=== PATIENT | female | born 1960 | race Caucasian/White ===

== ENCOUNTER 2017-07-13 10:53 | Emergency (ER) | payer OTHER ==
[2017-07-13] MEDS ORDERED: Sodium Chloride 0.9% 10 ML Syringe FLUSH PRN (11:07)
[2017-07-13] MEDS ORDERED: Ondansetron 4 MG/2 ML SDV IVPUSH ONE (11:09)
[2017-07-13] MEDS ORDERED: Ketorolac 30 MG/ML SDV IVPUSH ONE (11:09)
[2017-07-13] MEDS ORDERED: Lactated Ringers 1,000 ML IV SCH (11:15)
[2017-07-13 11:46] LABS: CHLORIDE,CL 105 mmol/L (98-107); SODIUM,NA 143 mmol/L (136-145)
[2017-07-13] MEDS ORDERED: Take Home: Nitrofurantoin Monohydrate/Macrocrystalline 100 MG, 2 Cap Pack PO ONE (13:40)
--- NOTE | 2017-07-13 13:59 | EDM.PDOC ---
ED HPI GENERAL MEDICAL PROBLEM - General Chief Complaint: Genitourinary Problem Stated Complaint: POSSIBLE UTI OR KIDNEY STONE Time Seen by Provider: 07/13/17 11:04 Source of Information: Reports: Patient History Limitations: Reports: No Limitations - History of Present Illness INITIAL COMMENTS - FREE TEXT/NARRATIVE: Pt. presents to ER with complaints of L sided flank pain and lower abdominal cramping. Pt. states that the symptoms started at approx. 0800 this AM. She states that the discomfort was very rapid in onset, and states that it resolved prior to arrival to the ER. She denies any fever or chills. No gross hematuria. She denies any weakness or sweats. No nausea, vomiting or diarrhea. Pt. states that the symptoms are similar to what she experienced when she has previously had kidney stones, with her last episode being approx. 4.5 years ago. She states that she has seen a urologist in the past and has required lithotripsy and ureteral stenting to facilitate passage of stones. She states that she has had approx. 6 previous episodes of renal colic. She states that the last time she had imaging of her kidneys (either KUB or CT scan, she can't recall) she had a large stone in the L kidney. She states that the stone composition has always been calcium oxylate. Pt. states that she has also been experiencing urinary frequency and dysuria for the past 1-2 days as well. Onset: Today Onset Date: 07/13/17 Onset Time: 08:00 Duration: Improving Location: Reports: Abdomen, Pelvis Quality: Reports: Ache, Sharp, Stabbing Severity: Severe Improves with: Reports: Other (spontaneously) Associated Symptoms: Reports: Nausea/Vomiting (nausea). Denies: Fever/Chills Left Flank Pain Score (Numeric/FACES): 4 - Related Data Allergies Allergy/AdvReac Type Severity Reaction Status Date / Time ciprofloxacin [From Cipro] Allergy Rash Verified 07/13/17 11:07 ibuprofen Allergy Hives Verified 07/13/17 11:07 Penicillins Allergy Hives Verified 07/13/17 11:07 Sulfa (Sulfonamide Allergy Vomiting Verified 07/13/17 11:07 Antibiotics) Home Meds: Home Meds Hydrochlorothiazide 25 mg PO DAILY 07/13/17 [History] Levothyroxine 137 mcg PO ACBREAKFAST 07/13/17 [History] Potassium Citrate 10 meq PO BID 07/13/17 [History] Venlafaxine [Effexor XR] 75 mg PO DAILY 07/13/17 [History] buPROPion [Wellbutrin] 75 mg PO BID 07/13/17 [History] Past Medical History Genitourinary History: Reports: Renal Calculus - Past Surgical History Female Surgical History: Reports: Lithotripsy/ESWL, Ureteral Stent Social & Family History - Tobacco Use Smoking Status *Q: Current Every Day Smoker Years of Tobacco use: 30 Packs/Tins Daily: 0.2 ED ROS GENERAL - Review of Systems Review Of Systems: See Below Constitutional: Reports: No Symptoms HEENT: Reports: No Symptoms Respiratory: Reports: No Symptoms Cardiovascular: Reports: No Symptoms Endocrine: Reports: No Symptoms GI/Abdominal: Reports: Abdominal Pain, Constipation. Denies: Diarrhea, Distension : Reports: Dysuria, Flank Pain, Frequency. Denies: Hematuria Musculoskeletal: Reports: No Symptoms Skin: Reports: No Symptoms Neurological: Reports: No Symptoms Psychiatric: Reports: No Symptoms Hematologic/Lymphatic: Reports: No Symptoms Immunologic: Reports: No Symptoms ED EXAM, GENERAL - Physical Exam Exam: See Below Exam Limited By: No Limitations General Appearance: Alert, WD/WN, No Apparent Distress Nose: Normal Inspection, Normal Mucosa, No Blood Throat/Mouth: Normal Inspection, Normal Lips, Normal Teeth, Normal Gums, Normal Oropharynx, Normal Voice, No Airway Compromise Head: Atraumatic, Normocephalic Neck: Normal Inspection, Supple, Non-Tender, Full Range of Motion Respiratory/Chest: No Respiratory Distress, Lungs Clear, Normal Breath Sounds, No Accessory Muscle Use, Chest Non-Tender Cardiovascular: Normal Peripheral Pulses, Regular Rate, Rhythm, No Edema, No Gallop, No JVD, No Murmur, No Rub Peripheral Pulses: 3+: Radial (L), Radial (R) GI/Abdominal: Normal Bowel Sounds, Soft, No Organomegaly, No Distention, No Mass , Pelvis Stable, Tender (No increased tenderness to palpation.). No: Distended , Mass, Hepatomegaly, Splenomegaly (Female) Exam: Deferred Rectal (Female) Exam: Deferred Back Exam: Normal Inspection, Full Range of Motion. No: CVA Tenderness (L), CVA Tenderness (R), Decreased Range of Motion Extremities: Normal Inspection, Normal Range of Motion, Non-Tender, Normal Capillary Refill, No Pedal Edema Neurological: Alert, Oriented, CN II-XII Intact, Normal Cognition, Normal Gait, Normal Reflexes, No Motor/Sensory Deficits Psychiatric: Normal Affect, Normal Mood Skin Exam: Warm, Dry, Intact, Normal Color, No Rash Lymphatic: No Adenopathy Course - Vital Signs Last Recorded V/S: Last Vital Signs Temp 36.3 C 07/13/17 11:00 Pulse 79 07/13/17 11:00 Resp 16 07/13/17 11:00 BP 108/66 07/13/17 11:00 Pulse Ox 96 07/13/17 11:00 - Orders/Labs/Meds Orders: Active Orders 24 hr Category Date Time Status Abdomen Pelvis wo Cont [CT] Stat Exams 07/13/17 12:11 Taken UA W/MICROSCOPIC [URIN] Stat Lab 07/13/17 11:15 Ordered Lactated Ringers [Ringers, Lactated] 1,000 ml Med 07/13/17 11:15 Active IV ASDIRECTED Sodium Chloride 0.9% [Saline Flush] Med 07/13/17 11:07 Active 10 ml FLUSH ASDIRECTED PRN Peripheral IV Insertion Adult [OM.PC] Routine Oth 07/13/17 11:08 Ordered Medication Orders Lactated Ringer's (Ringers, Lactated) 1,000 mls @ 500 mls/hr IV ASDIRECTED NILS Last Admin: 07/13/17 11:21 Dose: 500 mls/hr Sodium Chloride (Saline Flush) 10 ml FLUSH ASDIRECTED PRN PRN Reason: Keep Vein Open Last Admin: 07/13/17 11:20 Dose: 10 ml Labs: Laboratory Tests 07/13/17 07/13/17 07/13/17 Range/Units 11:15 11:19 11:19 WBC 6.3 (4.0-10.0) x10^3/uL RBC 4.60 (4.00-5.50) x10^6/uL Hgb 14.9 (12.0-16.0) g/dL Hct 44.4 (33.0-47.0) % MCV 96.5 H (78.0-93.0) fL MCH 32.4 H (26.0-32.0) pg MCHC 33.6 (32.0-36.0) g/dL RDW Coeff of June 13.7 (10.0-15.0) % Plt Count 195 (130-400) x10^3/uL Neut % (Auto) 50.4 (50.0-80.0) % Lymph % (Auto) 38.4 (25.0-50.0) % [place] % (Auto) 8.3 (2.0-11.0) % Eos % (Auto) 2.4 (0.0-4.0) % Baso % (Auto) 0.5 (0.2-1.2) % Sodium 143 (136-145) mmol/L Potassium 3.9 (3.5-5.1) mmol/L Chloride 105 (98-107) mmol/L Carbon Dioxide 27 (21-32) mmol/L BUN 19 H (7-18) mg/dL Creatinine 1.0 (0.55-1.02) mg/dL Est Cr Clr Drug Dosing TNP Estimated GFR (MDRD) 57 Glucose 92 (74-106) mg/dL Calcium 8.9 (8.5-10.1) mg/dL Corrected Calcium 9.14 (8.5-10.1) mg/dL Total Bilirubin 0.4 (0.2-1.0) mg/dL AST 25 (15-37) U/L ALT 40 (14-59) U/L Alkaline Phosphatase 107 (46-116) U/L Total Protein 8.1 (6.4-8.2) g/dL Albumin 3.7 (3.4-5.0) g/dL Globulin 4.4 Albumin/Globulin Ratio 0.84 Urine Color Yellow (YELLOW) Urine Appearance Slightly cloudy H (CLEAR) Urine pH 6.0 (5.0-8.0) Ur Specific [place] 1.020 Urine Protein Negative (NEGATIVE) mg/dL Urine Glucose (UA) Negative (NEGATIVE) mg/dL Urine Ketones Negative (NEGATIVE) mg/dL Urine Occult Blood Moderate H (NEGATIVE) Urine Nitrite Positive H (NEGATIVE) Urine Bilirubin Negative (NEGATIVE) Urine Urobilinogen 0.2 (0.2) EU/dL Ur Leukocyte Esterase Trace H (NEGATIVE) Urine RBC 10-20 H (NOT SEEN) /HPF Urine WBC 10-20 H (NOT SEEN) /HPF Ur Squamous Epith Cells Moderate H (NEGATIVE) /HPF Urine Bacteria Many H (NEGATIVE) /HPF Urine Mucus Not seen (NEGATIVE) /LPF Meds: Medications Generic Name Dose Route Start Last Admin Trade Name Freq PRN Reason Stop Dose Admin Lactated Ringer's 1,000 mls @ 500 mls/hr 07/13/17 11:15 07/13/17 11:21 Ringers, Lactated IV 500 mls/hr ASDIRECTED NILS Administration Sodium Chloride 10 ml 07/13/17 11:07 07/13/17 11:20 Saline Flush FLUSH 10 ml ASDIRECTED PRN Administration Keep Vein Open Discontinued Medications Generic Name Dose Route Start Last Admin Trade Name Freq PRN Reason Stop Dose Admin Ketorolac Tromethamine 30 mg 07/13/17 11:09 07/13/17 11:20 Toradol IVPUSH 07/13/17 11:10 30 mg ONETIME ONE Administration Nitrofurantoin Macrocrystals 1 packet 07/13/17 13:40 Take Home: Nitrofur [place]/Ma 100 Mg, 2 Pack PO 07/13/17 13:41 ONETIME ONE Ondansetron HCl 4 mg 07/13/17 11:09 07/13/17 11:43 Zofran IVPUSH 07/13/17 11:10 4 mg ONETIME ONE Administration - Radiology Interpretation Free Text/Narrative:: CT abdomen and pelvis was obtained and showed a 2 mm. stone had passed into the urinary bladder, and there was evidence of a 6.5 mm. stone in the L kidney, consistent with previous radiological findings. She also had evidence of a 2 cm. L adrenal mass which was present during previous imaging as well. Departure - Departure Time of Disposition: 13:55 Disposition: Home, Self-Care 01 Condition: Good Clinical Impression: UTI, Urinary tract infectious disease, Kidney stone - Discharge Information Instructions: Kidney Stones, Nitrofurantoin tablets or capsules, Urinary Tract Infection, Adult Referrals: PCP,Not In Area [Primary Care Provider] - Forms: ED Department Discharge Additional Instructions: Macrobid twice daily until gone (6 days total) Drink plenty of fluids Follow-up in clinic in 7-10 days if not gradually improving - Problem List & Annotations (1) Kidney stone SNOMED Code(s): 58694232 Code(s): N20.0 - CALCULUS OF KIDNEY Status: Acute Current Visit: Yes (2) UTI, Urinary tract infectious disease SNOMED Code(s): 89059348 Code(s): N39.0 - URINARY TRACT INFECTION, SITE NOT SPECIFIED Status: Acute Current Visit: Yes - Problem List Review Problem List Initiated/Reviewed/Updated: Yes - My Orders Last 24 Hours: My Active Orders 07/13/17 11:07 Sodium Chloride 0.9% [Saline Flush] 10 ml FLUSH ASDIRECTED PRN 07/13/17 11:08 Peripheral IV Insertion Adult [OM.PC] Routine 07/13/17 11:15 UA W/MICROSCOPIC [URIN] Stat Lactated Ringers [Ringers, Lactated] 1,000 ml IV ASDIRECTED 07/13/17 12:11 Abdomen Pelvis wo Cont [CT] Stat - Assessment/Plan Last 24 Hours: My Active Orders 07/13/17 11:07 Sodium Chloride 0.9% [Saline Flush] 10 ml FLUSH ASDIRECTED PRN 07/13/17 11:08 Peripheral IV Insertion Adult [OM.PC] Routine 07/13/17 11:15 UA W/MICROSCOPIC [URIN] Stat Lactated Ringers [Ringers, Lactated] 1,000 ml IV ASDIRECTED 07/13/17 12:11 Abdomen Pelvis wo Cont [CT] Stat Assessment:: 1. Kidney stone, passed into urinary bladder. 2. Acute cystitis. Plan: Macrobid 100mg twice daily for 6 days total. She was given 2 doses in the ER and a prescription for 10 more. Drink plenty of fluids. If still experiencing dysuria after she has finished her antibiotic, she was advised to follow-up in clinic for recheck.
== END 2017-07-13 13:54 | disposition home or self-care (01) ==
LOC: VM.ED 10:53
DX: N20.0 Calculus of kidney (principal); N39.0 Urinary tract infection, site not specified; F17.210 Nicotine dependence, cigarettes, uncomplicated; Z88.1 Allergy status to other antibiotic agents; Z88.0 Allergy status to penicillin; Z88.2 Allergy status to sulfonamides; Z88.6 Allergy status to analgesic agent; Z79.899 Other long term (current) drug therapy
CPT/HCPCS: 36415; 74176; 80053; 81001; 85025; 96361; 96374; 96375; 99284; A9270-GY; J1885; J2405; J7050; J7120